=== PATIENT | female | born 1965 | race Caucasian/White ===

== ENCOUNTER 2018-04-04 06:51 | Emergency (ER) | payer BC, OTHER ==
[2018-04-04] MEDS: NORCO, ANEXSIA 5/325MG TABLET (HYDROcodone/ACETAMINOPHEN) PO (07:20)
[2018-04-04] MEDS: NS 1,000 ML IV (08:42)
[2018-04-04] MEDS: fentaNYL 100 MCG/2 ML INJECTION (J3010) IV ×4 (08:44→10:04)
[2018-04-04] MEDS: MORPHINE 4 MG/ML 1ML VIAL/SYRINGE (J2270) IV (09:35)
[2018-04-04] MEDS: PROPOFOL 200 MG/20 ML VIAL IV ×3 (09:58→10:02)
== END 2018-04-04 11:52 | disposition home or self-care (01) ==
LOC: M ED 06:51
DX: S53.105A Unspecified dislocation of left ulnohumeral joint, initial encounter (principal); W00.0XXA Fall on same level due to ice and snow, initial encounter; Y92.018 Other place in single-family (private) house as the place of occurrence of the external cause; Z79.890 Hormone replacement therapy; Z88.5 Allergy status to narcotic agent
CPT/HCPCS: J2270

== ENCOUNTER → 2018-10-01 | Outpatient (CLI) | payer BC, OTHER ==
[~2018-10-01] MED LIST: ESTR1TAB PO
--- NOTE | 2018-10-01 18:01 | REP ---
Right foot series: Four views. History: Injury. Findings: Four views of the right foot are presented. There is plantar calcaneal spurring. Overall mineralization pattern is normal. There is some fragmentation of the distal tuft of the fourth toe but this may not be acute. There is some soft tissue swelling here. No other fracture is seen. Impression: Crush type fracture distal tuft 4th toe, question acuity. There is some soft tissue swelling. No other fracture seen. Heel spur. Electronically Signed by Jonas Butler MD 10/01/2018 07:06 P
== END ==
LOC: M LRY 17:14
PROVIDERS: ATTEND Nurse Practitioner Family
DX: S92.531A Displaced fracture of distal phalanx of right lesser toe(s), initial encounter for closed fracture (principal); Y92.9 Unspecified place or not applicable; Y93.9 Activity, unspecified; M77.31 Calcaneal spur, right foot

== ENCOUNTER → 2019-08-03 | Outpatient (CLI) | payer BC, OTHER ==
--- NOTE | 2019-08-03 15:23 | REPMRS ---
Patient History The patient states she had a clinical breast exam in July 2019. Family history of prostate cancer in father. Taking estrogen for 10 years. 3D TOMOSYNTHESIS WAS PERFORMED. [facility] lifetime risk for breast cancer is 9.5%. Digital Woman Screen Mammo: August 03, 2019 - Exam #: [id number] Bilateral CC and MLO view(s) were taken. Technologist: Marisela Barber Technologist FINDINGS: The breast tissue is heterogeneously dense. This may lower the sensitivity of mammography. There has been no change in the appearance of the mammogram from the prior studies. There is a moderate amount of residual fibroglandular tissue which is fairly symmetric. There is no interval development of dominant mass, areas of architectural distortion, or clustered microcalcification typical of malignancy. Assessment: BI-RADS/ACR category 1 mammogram. Negative Mammogram. Recommendation Routine screening mammogram in 1 year (for women over age 40). This mammogram was interpreted with the aid of an FDA-approved computer-aided dectection system. Electronically Signed By: Jorge Wallis MD 08/03/19 9729
== END ==
LOC: M WHC 13:43
PROVIDERS: ATTEND Specialist
DX: Z12.31 Encounter for screening mammogram for malignant neoplasm of breast (principal)

== ENCOUNTER → 2022-01-25 | Outpatient (REF) | payer BC, OTHER | LOC: M LAB REF 17:08 | PROVIDERS: ATTEND Internal Medicine Endocrinology, Diabetes & Metabolism | DX: E04.2 Nontoxic multinodular goiter (principal) ==

== ENCOUNTER → 2022-05-29 | Outpatient (CLI) | payer BC, OTHER | LOC: M WHC 06:49 | PROVIDERS: ATTEND Specialist | DX: Z12.31 Encounter for screening mammogram for malignant neoplasm of breast (principal) ==

== ENCOUNTER 2023-03-21 07:27 | Day surgery (SDC) | payer BC, OTHER ==
[~2023-03-21] VITALS: Ht 165.1 cm; Wt 91.2 kg
[~2023-03-21 07:27] MED LIST changes: +DESL1TBM PO; +NS 1,000 ML IV ONE; +VITMTA PO
[2023-03-21] MEDS ORDERED: ADVITAB PO (07:48)
[2023-03-21] MEDS ORDERED: propofoL 200 MG/20 ML VIAL As Ordered ONE (08:03)
[2023-03-21] MEDS ORDERED: LIDOCAINE 2% INJ 100 MG/5 ML SYRINGE As Ordered ONE (08:03)
[2023-03-21] MEDS ORDERED: fentaNYL 100 MCG/2 ML INJECTION As Ordered ONE (08:20)
[2023-03-21 08:52] VITALS: TEMP 97.2
[2023-03-21 09:12] VITALS: BP 150/80; O2SAT 100
== END 2023-03-21 09:15 | disposition home or self-care (01) ==
LOC: M OPP 07:27
PROVIDERS: ATTEND Surgery
DX: Z12.11 Encounter for screening for malignant neoplasm of colon (principal); K44.9 Diaphragmatic hernia without obstruction or gangrene; K21.00 Gastro-esophageal reflux disease with esophagitis, without bleeding; K22.89 Other specified disease of esophagus; K30 Functional dyspepsia; Z79.1 Long term (current) use of non-steroidal anti-inflammatories (NSAID); Z79.818 Long term (current) use of other agents affecting estrogen receptors and estrogen levels; Z79.899 Other long term (current) drug therapy; Z88.5 Allergy status to narcotic agent
CPT/HCPCS: 43239; 45378; 88305; J3010

== ENCOUNTER → 2023-10-21 | Outpatient (CLI) | payer BC, OTHER ==
[~2023-10-21] MED LIST changes: +ADVITAB PO; -NS 1,000 ML IV ONE
[2023-10-21 12:29] LABS: THYROXINE (T4) 9.5 UG/DL (4.5-10.9)
[2023-10-21 12:30] LABS: THYROID STIMULATING HORMONE 1.951 uIU/ML (0.55-4.78)
[2023-10-21 12:33] LABS: FREE THYROXINE INDEX 2.7 % (1.3-4.8)
== END ==
LOC: M WUC 10:12
PROVIDERS: ATTEND Physician Assistant
DX: M54.50 Low back pain, unspecified (principal); E04.1 Nontoxic single thyroid nodule; M47.816 Spondylosis without myelopathy or radiculopathy, lumbar region

== ENCOUNTER → 2024-08-10 | Outpatient (CLI) | payer BC, OTHER ==
[2024-08-10 12:39] LABS: HEMATOCRIT 41.5 % (36.0-47.0); HEMOGLOBIN 13.7 g/dl (12.0-15.5); MEAN CORPUSCULAR HEMOGLOBIN 29.7 pg (27.0-33.0); PLATELET COUNT, AUTOMATED 347 10^3/uL (150-450); RED BLOOD COUNT 4.61 10^6/uL (4.00-5.40)
[2024-08-10 12:56] LABS: ALBUMIN 3.4 G/DL (3.2-5.2); ALKALINE PHOSPHATASE 63 U/L (35-104); ALT/SGPT 17 U/L (7.0-40); AST/SGOT 17 U/L (<34); BILIRUBIN,TOTAL 0.4 MG/DL (0.3-1.2); BLOOD UREA NITROGEN 19 MG/DL (9-23); CALCIUM LEVEL 8.6 MG/DL (8.5-10.1); CARBON DIOXIDE LEVEL 30 MMOL/L (20-31); CHLORIDE LEVEL 104 MMOL/L (98-107); CHOLESTEROL LEVEL 161 MG/DL (<200); CHOLESTEROL RISK RATIO 2.58 (<5); CREATININE FOR GFR 0.78 MG/DL (0.55-1.30); GLOMERULAR FILTRATION RATE > 60.0 (>51); GLUCOSE, FASTING 96 MG/DL (60-100); HDL CHOLESTEROL 62.2 MG/DL (>40); LDL CHOLESTEROL 84.4 MG/DL (<100); NON-HDL-C 98.8 MG/DL; POTASSIUM SERUM 4.3 MMOL/L (3.5-5.1); SODIUM LEVEL 140 MMOL/L (136-145); TOTAL PROTEIN 6.4 G/DL (5.7-8.2); TRIGLYCERIDES LEVEL 72 MG/DL (<150)
[2024-08-11 06:49] LABS: WHITE BLOOD COUNT 6.3 10^3/uL (4.0-10.0)
== END ==
LOC: M WUC 08:29
PROVIDERS: ATTEND Physician Assistant
DX: D72.819 Decreased white blood cell count, unspecified (principal); E78.1 Pure hyperglyceridemia; R74.01 Elevation of levels of liver transaminase levels